=== PATIENT | male | born 1980 | race Caucasian/White ===

== ENCOUNTER → 2018-08-30 | Day surgery (SDC) | payer BC ==
[~2018-08-30] MED LIST: ACETAMINOPHEN 1000 MG/100 ML 100 ML IV ONE; BACITRACIN 50,000 UNIT VIAL ONE; BUPIVACAINE HCL 0.5% INJ 30 ML VIAL INJ ONE; CEFAZOLIN SOD 2 GM/D5W 50ML 50 ML IV ONE; DEXAMETHASONE SOD PHOS INJ 4 MG/ML VIAL ONE; FENTANYL CITRATE/PF 100MCG/2 ML INJ ONE; HYDROMORPHONE 2MG/ML 2 MG/ML ML ONE; KETOROLAC TROMETHAMINE 30 MG/ML VIAL ONE; LIDOCAINE HCL 2% LOCAL 20 ML VIAL ONE; LIDOCAINE HCL 2% LOCAL INJ 5 ML SDV VIAL INJ ONE; MIDAZOLAM HCL 2 MG/2 ML VIAL ONE; OMEPRAZOLE40 MG; ONDANSETRON HCL INJ 2MG/ML 2ML 2 MG/ML VIAL ONE; PROPOFOL IV EMULSION 10 MG/ML 20 ML VIAL ONE; ROPIVACAINE 0.5% 5 MG/ML 30 ML SDV ONE; SEVOFLURANE INHAL SOLN 250 ML PEN BTL ONE
--- OUTSIDE RECORDS SUMMARY | 2018-08-30 11:24 | XMS REPORT | Clinical Summary ---
Author Author [facility] Organization [facility] Address Unknown Phone Unavailable Care Team Providers Care Dirt Supervisor Name Role Phone Viral Nunez MD PCP Allergies No Known Allergies Medications No known medications Active Problems Not on file Social History Date Tobacco Use Types Packs/Day Years Used Never Smoker Alcohol Use Drinks/Week oz/Week Comments Yes Sex Assigned at Date Recorded Not on file Industry Job Start Date Occupation Not on file Not on file Not on file Travel End Travel History Travel Start No recent travel history available. Last Filed Vital Signs Not on file Plan of Treatment Health Maintenance Due Date Last Done Comments INFLUENZA VACCINE 11/11/2018 Results Not on fileafter 08/29/2017 Advance Directives Patient has advance care planning documents on file. For more information, hernando roberts contact: Juma Escobedo [address] [place] [address]
--- NOTE | 2018-08-30 17:09 | NUR ---
ORTHOPEDICS OPERATIVE NOTE Date of surgery: 08/30/18 Pre-operative Diagnosis: Right Distal Biceps Tendon Rupture Post-operative Diagnosis: Right Near Full Thickness Distal Biceps Tendon Rupture Procedure: Right Distal Biceps Repair Surgeon: Divine Morales DO Assist 1: Keith Rodriguez Anesthesia: General EBL: 10cc IVF: Per anesthesia Findings: As above Specimen: None Implants: Arthrex Bicep Button Complications: None. Disposition: PACU then Home. Indications for surgery: Walter is a 38 y.o. male who presented with an injury to the distal biceps tendon. History, exam and imaging were consistent with a distal biceps rupture. The risks and benefits of non-operative versus operative treatment were discussed. Specific risks of disruption of repair, injury to adjacent nerves, vascular injury etc were reviewed ( as well as others) with the patient in the office and again at bedside. Anesthesia service was to review the risks specific to anesthesia. The patient would like to proceed with surgery. Procedure: The patient was given preoperative Ancef antibiotics for prophylaxis against infection. The patient was taken to the operating room and placed supine on the OR table. After adequate general anesthesia, the Right upper extremity was prepped and draped in the standard sterile fashion. A sterile tourniquet was then applied. An approximately 5 cm incision was made over the proximal volar forearm distal to the flexion crease. Blunt dissection was used subcutaneously. Bipolar electrocautery was used to ensure appropriate hemostasis. The crossing veins were suture ligated. The biceps was encountered about about 5% of the tendon in place. The biceps tuberosity was identified and carefully exposed using flouroscopy to confirm location. With the arm in maximal supination a guide pin was placed. A 7.5-mm socket was created under fluoroscopic guidance. Attention was then turned to the biceps tendon. This was debrided, and Fiberloop whipstitches were placed using a locking configuration. The releases were performed around the tendon and muscle , and eventually the tendon was able to be brought down. There was sufficient length to allow for primary repair. An Arthrex bicep button was placed with each limb of each suture pair shuttled down and back through the button. The button was then secured on the posterior cortex of the radius, and by pulling on the each suture the tendon was reduced into the socket. The pairs of sutures were then tied the through tendon completing the repair. Confirmation of adequate hardware placement was obtained, reviewed and interpreted by me. Final AP and lateral fluoroscopy views were used to demonstrate that the button was in appropriate position and the tendon was reduced into the socket on direct visualization. The wound was irrigated after careful hemostasis. A 2-0 Vicryl was used subcutaneously followed by 3-0 Monocryl and Steri-Strips on the skin. A dry, sterile dressing followed by Webril was then applied, and a well-padded long-arm splint in a neutral position was then applied. The tourniquet was deflated at 70 minutes The sponge, needle, and instrument counts were correct at the end of the case. The patient tolerated the procedure well and was extubated and taken to recovery in stable condition and found to be neurovascularly intact Divine Morales, DO Date of surgery:
--- NOTE | 2018-08-30 17:11 | NUR ---
DISCHARGE SUMMARY PRIMARY DIAGNOSIS: Right Distal Biceps Rupture PROCEDURE PERFORMED: Right Distal Biceps Repair HOSPITAL COURSE: Patient tolerated procedure well and discharge home INSTRUCTIONS ON DISCHARGE: Weight bearing status: NWB DVT Prophylaxis: None Analgesics: Script provided Dressing Management: Leave to 2 weeks Follow up in the office in 2 weeks. MEDICATIONS ON DISCHARGE: Scripts provided DO [facility]ST[facility] [address] [place], [place] [id number] [phone]
[2018-08-30 17:30] VITALS: BP 130/78
== END | disposition home or self-care (01) ==
LOC: OR 11:22
PROVIDERS: ATTEND Orthopaedic Surgery
DX: S46.211A Strain of muscle, fascia and tendon of other parts of biceps, right arm, initial encounter (principal); X58.XXXA Exposure to other specified factors, initial encounter
CPT/HCPCS: 24342; J0131; J0690; J1100; J1170; J1885; J2001 ×2; J2250; J2405; J2704; J2795